=== PATIENT | female | born 1990 | race Caucasian/White ===

== ENCOUNTER → 2021-04-05 | Outpatient (CLI) | payer OTHER ==
--- NOTE | 2021-04-06 17:48 | REP ---
INDICATION: F/U ANATOMY COMPARISON: None. TECHNIQUE: Transabdominal obstetrical ultrasound with color Doppler evaluation. FINDINGS: Examination demonstrates a single live intrauterine in breech presentation. motion is identified by technologist. Placenta is noted posterior and grade 1 without evidence for placenta previa or abruption. Amniotic fluid volume is normal. Cervix measures 3.4 cm in length and appears closed.. Selected gestational age: 26 weeks 4 days with VITA 07/08/2021. Gestational age by current measurements 27 weeks 3 days with VITA 07/02/2021. FHR equals 149 beats per minute. Estimated weight 1061 grams (70thpercentile). Anatomical assessment demonstrates normal structures including cranium, choroid plexus, cavum, cerebellum/posterior fossa, facial features, lungs, four-chamber heart/ventricular outflow tracts, diaphragm, stomach, cord insertion/three-vessel cord, kidneys/bladder, spine, and extremities. Incidental echogenic focus within the left cardiac ventricle likely prominent chordae tendineae. IMPRESSION: Single live intrauterine in breech presentation demonstrating appropriate estimated weight. Anatomical assessment as described above. <Electronically signed by Jj Washington > 04/06/21 1949
== END ==
LOC: M WHC 10:20
PROVIDERS: ATTEND Specialist
DX: Z34.02 Encounter for supervision of normal first pregnancy, second trimester (principal)

== ENCOUNTER → 2021-04-10 | Outpatient (CLI) | payer OTHER ==
[2021-04-10 13:53] LABS: HEMATOCRIT 37.9 % (36.0-47.0); HEMOGLOBIN 12.7 g/dl (12.0-15.5); MEAN CORPUSCULAR HEMOGLOBIN 31.8 pg (27.0-33.0); MEAN CORPUSCULAR HGB CONC 33.5 g/dl (32.0-36.5); MEAN CORPUSCULAR VOLUME 94.8 fl (80.0-96.0); PLATELET COUNT, AUTOMATED 227 10^3/uL (150-450); WHITE BLOOD COUNT 10.6 10^3/uL (4.0-10.0)
== END ==
LOC: M PLALAB 08:30
PROVIDERS: ATTEND Family Medicine
DX: Z34.02 Encounter for supervision of normal first pregnancy, second trimester (principal)

== ENCOUNTER → 2021-06-11 | Outpatient (REF) | payer OTHER | LOC: M SFHCWAGY 16:57 | PROVIDERS: ATTEND Obstetrics & Gynecology | DX: Z34.03 Encounter for supervision of normal first pregnancy, third trimester (principal) ==

== ENCOUNTER 2021-07-18 07:28 | Inpatient (IN) | payer OTHER ==
[~2021-07-18] VITALS: Ht 165.1 cm; Wt 75.2 kg
[2021-07-18] VITALS (35 sets, daily range): BP systolic 87–203; BP diastolic 51–122
[2021-07-18] MEDS ORDERED: LACTATED RINGER'S 1000 ML IV STA (08:44)
[2021-07-18] MEDS ORDERED: PENICILLIN G POTASSIUM IV 5 MU in D5W MINI-BAG PLUS 100 ML IV STA (08:44)
[2021-07-18] MEDS ORDERED: METHYLERGONOVINE MALEATE 0.2 MG/ML VIAL (J2210) IM PRN (08:45)
[2021-07-18] MEDS ORDERED: TRANEXAMIC ACID INJection 1,000 MG in NS 100 ML IV PRN (08:45)
[2021-07-18] MEDS ORDERED: OXYTOCIN DRIP 30 UNITS in IV 1 EA IV PRN (08:45)
[2021-07-18] MEDS ORDERED: CARBOPROST TROMETHAMINE 250 MCG/ML AMP IM PRN (08:45)
[2021-07-18] MEDS ORDERED: LR 1,000 ML IV SCH (08:45)
--- NOTE | 2021-07-18 09:12 | HPEPDOC ---
Obstetrical History & Physical General Date of Admission Jul 18, 2021 at 08:21 History of Present Illness 31-year-old G1, P0 at 41+3 weeks gestation. Presents with frequent, painful [place] contractions over the past several hours and loss of fluid around 0530/clear. Denies any heavy vaginal bleeding. Reports regular movement. ROS: no ANDRADE, cp, sob, fever/chills/nausea/vomiting. course: uncomplicated; GBS +. 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 ABDOMEN: Gravid and non-tender to touch. FETUS: Is vertex (VTX) by sterile vaginal examination (SVE), fetus is vertex (VTX) by Donald. HEART RATE: Regular rate and rhythm. LUNGS: Clear to auscultation (CTA). EXTREMITIES: No edema. SVE: 4cm, 90%, -2, bloody show/grossly ruptured but with bulging forebag EFM: Cat I TOCO: ctxs every 3-5 min Vital Signs/I&O Vital Signs Date Time Temp Pulse Resp B/P (MAP) Pulse Ox O2 Delivery O2 Flow Rate FiO2 07/18/21 07:50 98.4 80 18 146/80 (102) Assessment/Plan Assessment 31yo at 41+3 weeks in active labor, ROM. Reassuring maternal and status. Plan Admit and orient. Registered Midwife and consent. Diet: clear Group B Streptococcus (GBS) positive; PCN prophylaxis ordered Labs and intravenous (IV) per unit protocol. Counseled on Pitocin augmentation of labor if necessary Anticipate C-S as appropriate. YURI RICHARDSON DO Jul 18, 2021 09:11
[2021-07-18 09:15] LABS: HEMATOCRIT 40.1 % (36.0-47.0); HEMOGLOBIN 13.9 g/dl (12.0-15.5); MEAN CORPUSCULAR HEMOGLOBIN 31.7 pg (27.0-33.0); MEAN CORPUSCULAR HGB CONC 34.7 g/dl (32.0-36.5); MEAN CORPUSCULAR VOLUME 91.6 fl (80.0-96.0); PLATELET COUNT, AUTOMATED 179 10^3/uL (150-450); RED BLOOD COUNT 4.38 10^6/uL (4.00-5.40); WHITE BLOOD COUNT 9.3 10^3/uL (4.0-10.0)
[2021-07-18] MEDS ORDERED: PRENTAB9 PO (09:42)
[2021-07-18] MEDS ORDERED: TUMS500C PO (09:42)
[2021-07-18] MEDS ORDERED: diphenhydrAMINE 50MG/ML VIAL (J1200) IV PRN ×2 (12:04→16:29)
[2021-07-18] MEDS ORDERED: EPIDURAL COMMENT XX SCH (12:04)
[2021-07-18] MEDS ORDERED: EPIDURAL/PCA KEYS XX PRN (12:04)
[2021-07-18] MEDS ORDERED: NALOXONE INJ 0.4MG/1ML VIAL (J2310 PER 1MG) IV PRN ×3 (12:04→16:29)
[2021-07-18] MEDS ORDERED: ONDANSETRON 4MG/2ML VIAL IV PRN ×3 (12:04→17:25)
[2021-07-18] MEDS ORDERED: FENTANYL/ROPIVACAINE/NACL BAG 100 ML EPIDURAL SCH (12:04)
[2021-07-18] MEDS ORDERED: REFRIGERATOR IV KEYS XX PRN (12:04)
[2021-07-18] MEDS ORDERED: FENTANYL 2MCG/ML ROPIVACAINE 0.2% IN 0.9% NACL 100ML IVBAG As Ordered ONE (12:07)
[2021-07-18] MEDS ORDERED: PENICILLIN G POTASSIUM IV 2.5 MU in IV 1 EA IV SCH (13:00)
[2021-07-18] MEDS ORDERED: ePHEDrine SULFATE 25 MG/5 ML(5MG/ML) SYRINGE IV PRN (13:05)
[2021-07-18] MEDS ORDERED: LACTATED RINGER'S 1000 ML IV PRN (13:05)
--- NOTE | 2021-07-18 13:36 | IPNPDOC ---
Obstetrical Progress Note Date of Service Jul 18, 2021 Subjective Called into room by RN to assess FHR. Cat II / bradycardia with mod variability. Patient recently had epidural placed and she is receiving excellent pain control. BP transiently hypotensive, which required ephedrine. Upon my arrival, patient noted to be normotensive. No active/heavy bleeding. Continues to leak clear fluid. Maternal position change and maternal O2 administered. Baseline FHR improved to BL 110-120 with moderate variability. Contractions are occurring approximately every 2 minutes. Objective Vital Signs Date Time Temp Pulse Resp B/P (MAP) Pulse Ox O2 Delivery O2 Flow Rate FiO2 07/18/21 07:50 98.4 80 18 146/80 (102) Sterile Vaginal Examination Dilation: 7 cm Effacement (%): 90% Station: -2 Cervical Consistency: Soft Postion/Presentation: Cephalic presentation Assessment and Plan Group B Streptococcus: Positive Additional Comments Active labor; normal progression thus far. Discussed FHR pattern with patient and . Discussed possibility of PLTCS becoming indicated for NRFHR. YURI RICHARDSON DO Jul 18, 2021 13:36
[2021-07-18] MEDS ORDERED: TERBUTALINE SULFATE 1 MG/ML VIAL (J3105) As Ordered ONE (14:58)
[2021-07-18] MEDS ORDERED: TERBUTALINE SULFATE 1 MG/ML VIAL (J3105) SC STA (14:59)
--- NOTE | 2021-07-18 15:19 | IPNPDOC ---
Obstetrical Progress Note Date of Service Jul 18, 2021 Subjective Patient has had some moments of suboptimal pain control with epidural. Anesthesia has adjusted her epidural dosing, which has offered some relief. Cat II FHR has intermittently recurred. Uterine tachysystole noted and terbutaline 0.25mg SC administered. FHR currently at a normal baseline with moderate variability. SVE: 10cm (anterior lip reduced)/100%/0, suspect OP position. Excellent progression of labor without any Pitocin augmentation. Now in second stage of labor. Plan is to start maternal pushing efforts very soon. Discussed possibility of NRFHR during second stage. Patient states she would prefer operative vaginal delivery over PLTCS if either is deemed appropriate/indicated. R/b/a/i of each were reviewed. Objective Vital Signs Date Time Temp Pulse Resp B/P (MAP) Pulse Ox O2 Delivery O2 Flow Rate FiO2 07/18/21 14:31 89 117/67 (84) 07/18/21 11:18 97.8 18 YURI RICHARDSON DO Jul 18, 2021 15:19
[2021-07-18] MEDS ORDERED: ceFAZolin SOD 2 GM in IV 1 EA IV ONE (15:50)
[2021-07-18] MEDS ORDERED: BICITRA 30ML SOLN UDC PO ONE (15:50)
[2021-07-18] MEDS ORDERED: AZITHROMYCIN INJ 500 MG, VIAL MATE ADAPTER 1 EACH in NS 250 ML IV ONE (15:50)
--- NOTE | 2021-07-18 15:54 | IPNPDOC ---
Obstetrical Progress Note Date of Service Jul 18, 2021 Subjective Second stage of labor notable for persistent Cat II FHR without any significant descent of the presenting vertex. Caput noted. Meconium noted. With lack of significant descent and NRFHR, I recommended proceeding with PLTCS. SVE: c/c/0. Not enough descent for operative vaginal delivery. R/b/a/i reviewed and informed consent obtained. Objective Vital Signs Date Time Temp Pulse Resp B/P (MAP) Pulse Ox O2 Delivery O2 Flow Rate FiO2 07/18/21 14:31 89 117/67 (84) 07/18/21 11:18 97.8 18 YURI RICHARDSON DO Jul 18, 2021 15:54
[2021-07-18] MEDS ORDERED: SODIUM BICARBONATE 8.4% INJ 50MEQ 50 ML VIAL As Ordered ONE (16:06)
[2021-07-18] MEDS ORDERED: LIDOCAINE 2% W/EPINEPHRINE 20ML VIAL **PRES FREE As Ordered ONE (16:06)
[2021-07-18] MEDS ORDERED: ONDANSETRON 4MG/2ML VIAL As Ordered ONE (16:10)
[2021-07-18] MEDS ORDERED: ePHEDrine SULFATE 25 MG/5 ML(5MG/ML) SYRINGE As Ordered ONE (16:15)
[2021-07-18] MEDS ORDERED: OXYTOCIN 30 UNITS IN 0.9% NaCl 500ML IV BAG (J2590) As Ordered ONE (16:18)
[2021-07-18] MEDS ORDERED: MORPHINE PRES-FREE INJ 10 MG/10 ML VIAL (J2274) As Ordered ONE (16:26)
[2021-07-18] MEDS ORDERED: NALBUPHINE HCL 10 MG/ML AMP (J2300) IV PRN (16:29)
[2021-07-18] MEDS ORDERED: dexameTHASONE 4 MG/ML 1ML VIAL (J1100 PER 1MG) As Ordered ONE (16:29)
[2021-07-18] MEDS ORDERED: METOCLOPRAMIDE INJ 10MG/2ML VIAL (J2765 PER 1) IV PRN (16:29)
[2021-07-18] MEDS ORDERED: KETOROLAC 60MG 2ML VIAL As Ordered ONE (16:29)
[2021-07-18 16:35] LABS: CORD GAS HCO3 A 20.2 MEQ/L; CORD GAS O2 SAT A 30.3 %; CORD GAS PCO2 A 56.5 mmHg; CORD GAS PH A 7.172 UNITS; CORD GAS PO2 A 18.2 mmHg; CORD GAS SBC A 15.9 MEQ/L
[2021-07-18 16:36] LABS: CORD GAS ABE V -9.2; CORD GAS HCO3 V 18.6 MEQ/L; CORD GAS O2 SAT V 59.4 %; CORD GAS PCO2 V 46.9 mmHg; CORD GAS PH V 7.216 UNITS; CORD GAS PO2 V 28.1 mmHg; CORD GAS SBC V 16.4 MEQ/L
[2021-07-18] MEDS ORDERED: KETOROLAC 30 MG/ML 1ML VIAL IV PRN (16:43)
[2021-07-18] MEDS ORDERED: OXYTOCIN DRIP 30 UNITS in IV 1 EA IV SCH (17:00)
[2021-07-18] MEDS ORDERED: SIMETHICONE 80MG CHEW TAB PO PRN (17:00)
[2021-07-18] MEDS ORDERED: RHOGAM 300 MCG (1500 IU) INJ (J2790) IM SCH (17:00)
[2021-07-18] MEDS ORDERED: PERCOCET 5MG/325MG TAB PO PRN (17:00)
[2021-07-18] MEDS ORDERED: MEASLES,MUMPS,RUBELLA VACCINE INJ (MMR-II) (90707) SC SCH (17:00)
--- NOTE | 2021-07-18 17:07 | ROOPDOC ---
[facility] Report Of Operation Report of Operation DATE OF PROCEDURE: 07/18/2021 PREPROCEDURE DIAGNOSES: Arrest of descent, nonreassuring heart rate tracing, late term gestation POSTPROCEDURE DIAGNOSES: Same; true knot noted PROCEDURE: Primary low transverse section SURGEON: Luis Fernando Sanches DO FACOG LATENT PRINT EXAMINER: Dr. Shana Mortensen (Essential role in retraction, extraction, and closure of all tissue layers) ANESTHESIA: Epidural ESTIMATED BLOOD LOSS: 700 mL. IV FLUIDS: 700 mL LR URINE OUTPUT: 150 mL COMPLICATIONS: None. PREOPERATIVE ANTIBIOTICS: Ancef 2g IV x 1, azithromycin 500mg IV. COMPLICATIONS: none DATA: Apgars 8 and 9. Birthweight 3870 g, 8 lbs 9 oz. SPECIMENS: none PRIMARY INDICATION FOR : Non-reassuring heart rate tracing (primary reason), and Arrest of descent DESCRIPTION OF PROCEDURE: The patient was counseled on the risks, benefits, indications and alternatives of the procedure. Informed consent was obtained. She was taken to the operating room with IV running and placed on the operating table in the dorsal supine position with a leftward tilt. Regional anesthesia was found to be adequate. Sequential compression devices were placed on the lower extremities. A Saldaña cat heter was placed under sterile conditions. She was prepared and draped in normal sterile fashion. A time out was performed per protocol. Regional anesthesia was again found to be adequate. A Pfannenstiel skin incision was made with the 10 blade. The 10 blade was used to dissect down to the level of the rectus sheath fascia. The rectus sheath fascia was incised midline and this was extended bilaterally with Burgess scissors , and manual stretch. The rectus muscle bellies were dissected off the rectus sheath fascia superiorly and inferiorly using both sharp and blunt dissection. The midline was identified. The peritoneum was identified and entered digitally. The peritoneal opening was extended with manual stretch. The Mobius retractor was placed. The vesicouterine peritoneum was dissected with Metzenbaum scissors to create the bladder flap. A low transverse uterine incision was made with the 10 blade. This was extended with manual stretch. The amniotic sac was punctured, and clear fluid was noted. The baby delivered through the hysterotomy without difficulty. The cord was doubly clamped and cut, and the baby was handed off to awaiting care. data shown above. Cord blood obtained. Cord gases were obtained. The placenta was removed manually. The intrauterine cavity was cleared of all clot and debris. The hysterotomy was closed with 0 Vicryl in running locked fashion. This was reinforced with a second imbricating layer using 0 Monocryl in running fashion. Excellent hemostasis of the hysterotomy was noted. The pelvis was irrigated and the fluid suctioned. The Mobius retractor was removed. The peritoneum was closed with 3-0 Vicryl running fashion. The rectus muscle bellies were reapproximated with interrupted stitches using 3-0 Vicryl. The rectus muscles bellies were hemostatic. The rectus sheath fascia was closed with 0 Vicryl running fashion. The subcutaneous layer was irrigated and the fluid suctioned. Small bleeding vessels were cauterized with Bovie. Excellent hemostasis was noted. The subcutaneous layer was reapproximated with 3-0 Vicryl running fashion. Skin was closed with 3-0 Monocryl in subcuticular fashion. An Optifoam bandage was placed over the closed incision. Sponge, needle and instrument counts were correct per protocol throughout the procedure. The patient tolerated the entire procedure very well. She was transferred to the PACU in stable condition. DO ODETTE St JONATHAN R. DO Jul 18, 2021 17:07
[2021-07-18] MEDS ORDERED: oxyCODONE 5MG TAB PO PRN (17:25)
[2021-07-18] MEDS ORDERED: fentaNYL 100 MCG/2 ML INJECTION (J3010) IV PRN (17:25)
[2021-07-18] MEDS: LR 1,000 ML IV SCH (18:11)
[2021-07-18] MEDS: DOCUSATE SODIUM 100MG CAPSULE PO SCH (21:10)
[2021-07-18] MEDS: KETOROLAC 30 MG/ML 1ML VIAL IV SCH (23:22)
[2021-07-19] MEDS: LR 1,000 ML IV SCH (01:05)
[2021-07-19 02:00] VITALS: BP 113/55
[2021-07-19] MEDS: KETOROLAC 30 MG/ML 1ML VIAL IV SCH ×2 (05:11→11:07)
[2021-07-19 05:39] VITALS: BP 119/59
[2021-07-19 07:08] LABS: HEMATOCRIT 31.4 % (36.0-47.0); MEAN CORPUSCULAR HEMOGLOBIN 32.1 pg (27.0-33.0); MEAN CORPUSCULAR HGB CONC 34.4 g/dl (32.0-36.5); MEAN CORPUSCULAR VOLUME 93.5 fl (80.0-96.0); PLATELET COUNT, AUTOMATED 148 10^3/uL (150-450); RED BLOOD COUNT 3.36 10^6/uL (4.00-5.40); WHITE BLOOD COUNT 19.1 10^3/uL (4.0-10.0)
[2021-07-19 07:09] LABS: HEMOGLOBIN 10.8 g/dl (12.0-15.5)
[2021-07-19] MEDS: PRENATAL VITAMINS CHEWABLE TABLET PO SCH (09:13)
[2021-07-19] MEDS: DOCUSATE SODIUM 100MG CAPSULE PO SCH ×2 (09:13→20:32)
[2021-07-19 10:00] VITALS: BP 112/60
[2021-07-19 14:00] VITALS: BP 116/58
[2021-07-19] MEDS: PERCOCET 5MG/325MG TAB PO PRN ×2 (14:53→20:55)
[2021-07-19 17:48] VITALS: BP 121/62
[2021-07-19] MEDS: IBUPROFEN 800 MG TAB PO SCH (18:45)
[2021-07-19 23:00] VITALS: BP 128/71
[2021-07-20 02:00] VITALS: BP 143/75
[2021-07-20] MEDS: IBUPROFEN 800 MG TAB PO SCH ×2 (02:28→11:52)
[2021-07-20 06:00] VITALS: BP 133/79
[2021-07-20] MEDS: PRENATAL VITAMINS CHEWABLE TABLET PO SCH (08:25)
[2021-07-20] MEDS: DOCUSATE SODIUM 100MG CAPSULE PO SCH (08:25)
[2021-07-20] MEDS: PERCOCET 5MG/325MG TAB PO PRN ×2 (08:26→16:17)
--- NOTE | 2021-07-20 09:05 | IPNPDOC ---
Progress Note Date of Service: Jul 20, 2021 Day#: 2 Progress Note SUBJECT: Patient is a 31-year-old G 1 P 1 status post uncomplicated primary low transverse section at 41-3/7 weeks' doing well day #2. She has been ambulating, voiding spontaneously without issue and tolerating regular diet. Breast feeding without issue. Reports lochia is like a normal period. Patient is ambulating well. Reports some cramping, well controlled with medication. Voiding and ambulating without difficulty. OBJECTIVE: VITAL SIGNS: Within normal limits, afebrile. Alert and oriented times three. Breath sounds clear to auscultation. Heart rate: Regular rate and rhythm, no murmurs, rubs or gallops. Abdomen: Fundus firm at U-2. Soft, appropriately tender to palpation. Vision clean dry and intact Minimal to moderate lochia. ASSESSMENT: Patient is a 31-year-old G 1 P 1 status post uncomplicated low transverse section for arrest of descent. Doing well on day 2. Vitals within normal limits, afebrile, hemodynamically stable with no evidence of infection. PLAN: 1. Potential discharge to home today. 2. Tylenol and Motrin for pain. Oxycodone as needed 3. Encourage breast feeding and ambulation. 4. Patient desires norethindrone for contraception 5. Routine PP visit in 6 weeks in clinic. 6. Discussed return precautions at length. VS, I&O, 24H, Fishbone Vital Signs/I&O Vital Signs Date Time Temp Pulse Resp B/P (MAP) Pulse Ox O2 Delivery O2 Flow Rate FiO2 07/20/21 08:26 20 Room Air 07/20/21 06:00 98.8 80 133/79 (97) 98 LIZBETH COYLE MD Jul 20, 2021 09:05
[2021-07-20 10:00] VITALS: BP 121/61
[2021-07-20 14:00] VITALS: BP 122/61
[2021-07-20] MEDS ORDERED: IBUP-1022 PO (15:36)
[2021-07-20] MEDS ORDERED: OXYC-517 PO (15:36)
[2021-07-20] MEDS ORDERED: COLA100C5 PO (15:36)
[2021-07-20] MEDS ORDERED: ACET-683 PO (15:36)
== END 2021-07-20 16:47 | disposition home or self-care (01) | DRG 773 ==
LOC: M LDO 07:28 → M LDI 08:21 → M OBS 18:22
PROVIDERS: ADMIT Obstetrics & Gynecology; ATTEND Obstetrics & Gynecology
PROC: 10D00Z1 Extraction of Products of Conception, Low, Open Approach (ICD-10-PCS; principal; 2021-07-18 16:11)
DX: O48.0 Post-term pregnancy (principal); O99.824 Streptococcus B carrier state complicating childbirth; Z3A.41 41 weeks gestation of pregnancy; O76 Abnormality in fetal heart rate and rhythm complicating labor and delivery; O77.0 Labor and delivery complicated by meconium in amniotic fluid; O64.0XX0 Obstructed labor due to incomplete rotation of fetal head, not applicable or unspecified; O69.2XX0 Labor and delivery complicated by other cord entanglement, with compression, not applicable or unspecified; Z37.0 Single live birth

== ENCOUNTER → 2022-10-01 | Outpatient (REF) | payer OTHER ==
[~2022-10-01] MED LIST: ACET-683 PO; COLA100C5 PO; IBUP-1022 PO; OXYC-517 PO; PRENTAB9 PO; TUMS500C PO
== END ==
LOC: M PLALAB 13:03
PROVIDERS: ATTEND Nurse Practitioner Family
DX: Z12.4 Encounter for screening for malignant neoplasm of cervix (principal)

== ENCOUNTER → 2023-07-23 | Outpatient (REF) | payer OTHER | LOC: M SFHCPLAZ 15:07 | PROVIDERS: ATTEND Nurse Practitioner Family | DX: R23.2 Flushing (principal) ==

== ENCOUNTER → 2023-08-18 | Outpatient (CLI) | payer OTHER ==
[2023-08-18 11:15] LABS: CORTISOL AM 22.5 UG/DL (4.3-22.4)
[2023-08-18 11:18] LABS: THYROID STIMULATING HORMONE 1.158 uIU/ML (0.55-4.78); THYROXINE (T4) 10.1 UG/DL (4.5-10.9)
[2023-08-18 11:22] LABS: FREE THYROXINE INDEX 3.7 % (1.3-4.8); T UPTAKE 36.9 % (22.5-37.0)
== END ==
LOC: M PLALAB 08:17
PROVIDERS: ATTEND Nurse Practitioner Family
DX: R23.2 Flushing (principal)

== ENCOUNTER → 2023-10-06 | Outpatient (CLI) | payer OTHER ==
[2023-10-06 11:08] LABS: FOLLICLE STIMULATING HORMONE 7.8 mIU/ML
[2023-10-06 11:09] LABS: LUTEINIZING HORMONE 15.1 mIU/ML; PROLACTIN 8.78 NG/ML
== END ==
LOC: M PLALAB 07:42
PROVIDERS: ATTEND Physician Assistant
DX: L70.0 Acne vulgaris (principal); L68.9 Hypertrichosis, unspecified; R23.2 Flushing